=== PATIENT | male | born 2000 | race Caucasian/White ===

== ENCOUNTER 2020-09-07 13:38 | Emergency (ER) | payer BC, SELFPAY ==
--- NOTE | ~2020-09-07 | XR_ITS ---
XR foot RT min 3V 09/07/2020 13:57 Indication: Right foot pain after growth fell on foot Procedure: 4 views right foot Comparison: No prior studies for comparison. Findings: There is a nondisplaced fracture of the distal aspect of the first metatarsal. No intra-art icular extension. Mild soft tissue swelling. Lisfranc joint intact. No foreign bodies. Impression: 1: Nondisplaced extra-articular fracture distal aspect of the right first metatarsal. Reviewed, dictated and finalized at location A. Impression: 1: Nondisplaced extra-articular fracture distal aspect of the right first metat arsal.
--- NOTE | 2020-09-07 13:41 | ED.LOWEXIN ---
HPI - Extremity Injury (Lower) General Chief Complaint: Extremity Injury, Lower Stated Complaint: injured r foot Time Seen by Provider: 09/07/20 13:41 Source: patient Limitations: no limitations History of Present Illness HPI Narrative: The patient, presents mostly healthy, presents with right foot pain. Patient states yesterday evening a grill fell on the top of his foot. Complains of mild pain with very superficial , transverse healing abrasion of the metatarsals of the great toe. No deformity; symptoms are mild, worse with activity and better with elevation Related Data Home Medications Medication Instructions Recorded Confirmed lisdexamfetamine [Vyvanse] 40 mg PO DAILY 09/07/20 09/07/20 Allergies Allergy/AdvReac Type Severity Reaction Status Date / Time No Known Allergies Allergy Verified 09/07/20 13:45 Review of Systems Review of Systems: Narrative: The patient has been informed that they may have pre-hypertension or Hypertension based on a BP reading in the department. I recommend that the patient call the primary care provider listed on their discharge instructions or a physician of their choice this week to arrange follow up for further evaluation of possible pre-hypertension or Hypertension General/Constitutional: No weight loss,fever Eyes: N0: Redness,discharge Ears/Nose/Throat: No: Epistaxis,ear discharge Respiratory: Denies: Hemoptysis Gastrointestinal: No Vomiting, Bleeding-rectal Skin: No Lumps, eruption Neurologic: No Focal Weakness,Sz Hematologic: Denies: Petechiae/Purpura Psychiatric: No: Suicida ideationl All Other Systems: Reviewed and Negative PMFSH Comments At time of signature, agree with nursing past medical, surgical, social and family history. There is no relevant family history pertinent to the presenting complaint Exam Narrative: Exam Narrative: General Appearance: Well appearing, Well nourished,, Conjunctiva clear Mouth/Throat: Normal appearing, Normal lips, Supple Respiratory: Airway patent, No respiratory distress MS foot: Normal strength (mostly intact, limited flexion/extension by MTPJ pain), Tenderness (distal first metatarsal, with mild decreased ROM), Swelling (metatarsal), Other (no anterior drawer, no collateral laxity, no Achilles tenderness, no fifth MT tenderness) Skin: Warm, Dry, Normal color Neurological: A&O x3, Normal affect Course Vital Signs Vital signs: Vital Signs Temperature 99.1 F 09/07/20 13:47 Pulse Rate 87 09/07/20 13:47 Respiratory Rate 16 09/07/20 13:47 Blood Pressure 150/95 H 09/07/20 13:47 Pulse Oximetry 100 09/07/20 13:47 Temperature 99.1 F 09/07/20 13:47 Pulse Rate 87 09/07/20 13:47 Respiratory Rate 16 09/07/20 13:47 Blood Pressure 150/95 H 09/07/20 13:47 Pulse Oximetry 100 09/07/20 13:47 Discharge Plan Discharge Clinical Impression: Metatarsal fracture Qualifiers: Encounter type: initial encounter Metatarsal bone: first Fracture type: closed Fracture alignment: nondisplaced Laterality: right Qualified Code(s): S92.314A - Nondisplaced fracture of first metatarsal bone, right foot, initial encounter for closed fracture Patient Disposition: Home, Self-Care Condition: Improved Instructions: Foot Fracture in Adults (ED) Additional Instructions: Wear flat shoe/splint See podiatry in follow-up Prescriptions: New tramadol 50 mg tablet 50 mg PO Q6H PRN (Reason: pain) Qty: 15 RF: 1 No Action Vyvanse 40 mg capsule 40 mg PO DAILY RF: 0 Follow-up/Referrals: Megan Jefferson MD [Primary Care Provider] -
[2020-09-07 13:47] VITALS: BP 150/95; PULSE 87; RESP 16; TEMP 37.3; O2SAT 100
== END 2020-09-07 14:22 | disposition home or self-care (01) ==
PROVIDERS: Emergency Provider Emergency Medicine; PCP Pediatrics
DX: S92.314A Nondisplaced fracture of first metatarsal bone, right foot, initial encounter for closed fracture (principal); W20.8XXA Other cause of strike by thrown, projected or falling object, initial encounter
CPT/HCPCS: 73630; 99214; G0463